=== PATIENT | male | born 1960 | race African-American/Black ===

== ENCOUNTER 2017-10-19 06:31 | Day surgery (SDC) | payer MEDICARE, OTHER ==
[2017-10-14 11:42] VITALS: BMI 24.0
[~2017-10-19 06:31] MED LIST: LACTATED RINGERS 1,000 ML IV SCH; LIDOCAINE 1% 20 ML VIAL (10MG/ML) FOR IV START INTRADERMA PRN
[2017-10-19] MEDS ORDERED: LACTATED RINGERS 1,000 ML IV ONE ×3 (06:58)
[2017-10-19 07:05] VITALS: RESP 18; TEMP 98.4
[2017-10-19] MEDS ORDERED: PROPOFOL 10 MG/ML 20 ML VIAL IV ONE (07:31)
[2017-10-19] MEDS ORDERED: LIDOCAINE 1% INJ 10MG/ML (20 ML MDV) ONE (07:31)
--- NOTE | 2017-10-19 07:58 | P.OP ---
Date of Procedure: 10/19/17 Preoperative Diagnosis: Colon cancer screening, personal history of crohn's disease Postoperative Diagnosis: same Procedure(s) Performed: Colonoscopy with biopsy Anesthesia: MAC Surgeon: Marcie Ochoa Pathology: other (Terminal ileum, random colon) Condition: stable Disposition: PACU Indications for Procedure: Patient presented for colon cancer screening. He's had a history of inflammatory bowel disease, Crohn's disease. He has several bowel movements per day. Operative Findings: The patient's taken the endoscopy suite where colonoscope is passed per rectum to the terminal ileum. He has a fairly good prep. There is liquid which was able to be irrigated and aspirated. The terminal ileum was intubated for about 6 inches and appeared unremarkable. The mucosa appears normal. The villous pattern appeared fairly normal. Several cold biopsies were obtained. The remainder of the colon was examined. Grossly there were no evidence of polyp, mass lesion, ulcer, other mucosal abnormality. No diverticular disease was seen. Some random colonic biopsies were obtained. No significant hemorrhoidal disease on retroflexion of the scope. He tolerated the procedure without difficulty and was taken recovery room in satisfactory condition. He should have a repeat colonoscopy in 10 years. We'll call with the report of the biopsies. Plan - Discharge Summary New Discharge Prescriptions: No Action Ergocalciferol (Vitamin D2) [Drisdol] 50,000 unit PO MARTIN Fenofibrate [Lofibra] 160 mg PO QAM Rosuvastatin [Crestor] 20 mg PO QAM HYDROcodone/APAP 5-325MG [[place] 5-325] 1 tab PO Q6HR PRN PRN Reason: Pain Discharge Medication List Ergocalciferol (Vitamin D2) [Drisdol] 50,000 unit PO MARTIN 02/12/16 [History] Fenofibrate [Lofibra] 160 mg PO QAM 10/14/17 [History] HYDROcodone/APAP 5-325MG [[place] 5-325] 1 tab PO Q6HR PRN 10/14/17 [History] Rosuvastatin [Crestor] 20 mg PO QAM 10/14/17 [History] Discharge Disposition: HOME SELF-CARE
[2017-10-19 08:28] VITALS: BP 122/80; PULSE 56
== END 2017-10-19 08:42 | disposition home or self-care (01) ==
LOC: ORWHC2ENDO 06:31
PROVIDERS: ATTEND Surgery
DX: K50.00 Crohn's disease of small intestine without complications (principal); Z79.891 Long term (current) use of opiate analgesic; Z79.899 Other long term (current) drug therapy; Z80.0 Family history of malignant neoplasm of digestive organs
CPT/HCPCS: 88305; 88313; 45380; J2001; J2704

== ENCOUNTER 2018-03-25 19:20 | Emergency (ER) | payer MEDICARE, OTHER ==
[2018-03-25 19:31] VITALS: BP 164/89; PULSE 56; RESP 18; TEMP 97.8
--- NOTE | 2018-03-25 19:59 | XR ---
EXAMINATION TYPE: XR finger RT DATE OF EXAM: 03/25/2018 COMPARISON: NONE HISTORY: Finger pain TECHNIQUE: 3 views FINDINGS: There is a hairline fracture of the tuft of the distal phalanx. Joint spaces are normal. IMPRESSION: Nondisplaced tuft fracture.
--- NOTE | 2018-03-25 20:13 | ED ---
Upper Extremity HPI - General Chief Complaint: Extremity Injury, Upper Stated Complaint: finger injury Time Seen by Provider: 03/25/18 19:35 Source: patient Mode of arrival: ambulatory Limitations: no limitations - History of Present Illness Initial Comments: This is a to 7-year-old male who presents to the emergency department with chief complaint of right index finger injury. Patient states a little over one week ago he was helping attach a trailer to the back of a truck. He states that he lifted up the joint of the trailer and it came down, crushing his right index finger between the ball on the truck and the end of the trailer. Patient states that he has had pain continuously to the tip of the finger. He denies any other injuries or trauma. He states that the tip of his finger does feel dull. Denies recent fevers or chills, chest pain or shortness breath, abdominal pain, nausea or vomiting. - Related Data Home Medications Medication Instructions Recorded Confirmed Ergocalciferol (Vitamin D2) 50,000 unit PO MARTIN 02/12/16 10/14/17 [Drisdol] Fenofibrate [Lofibra] 160 mg PO QAM 10/14/17 10/14/17 HYDROcodone/APAP 5-325MG [[place] 1 tab PO Q6HR PRN 10/14/17 10/14/17 5-325] Rosuvastatin [Crestor] 20 mg PO QAM 10/14/17 10/14/17 Allergies Allergy/AdvReac Type Severity Reaction Status Date / Time No Known Allergies Allergy Verified 03/25/18 19:31 Review of Systems ROS Statement: Those systems with pertinent positive or pertinent negative responses have been documented in the HPI. ROS Other: All systems not noted in ROS Statement are negative. 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" History of Any Multi-Drug Resistant Organisms: None Reported Past Surgical History: Hernia Repair, Orthopedic Surgery Additional Past Surgical History / Comment(s): right arm surgery; L arm surgery and then removal of pins; colonoscopy Past Anesthesia/Blood Transfusion Reactions: No Reported Reaction Past Psychological History: No Psychological Hx Reported Smoking Status: Never smoker - Past Family History Father Additional Family Medical History / Comment(s): pt did'nt know his father much- he was an alcoholic Mother Family Medical History: Cancer, Diabetes Mellitus, Hypertension Additional Family Medical History / Comment(s): breast cancer Sister(s) Additional Family Medical History / Comment(s): heart murmur Daughter(s) Additional Family Medical History / Comment(s): heart murmur and has hole in heart General Exam - General Exam Comments Initial Comments: General: Awake and alert, well-developed; in no apparent distress. HEENT: Head atraumatic, normocephalic. Pupils are equal, round and reactive to light. Extraocular movements intact. Oropharynx moist without erythema or exudate. Neck: Supple. Normal ROM. Cardiovascular: Regular rate and rhythm. No murmurs, rubs or gallops. Chest symmetrical. Respiratory: Lungs clear to auscultation bilaterally. No wheezes, rales or rhonchi. Normal respiratory effort with no use of accessory muscles. Musculoskeletal: Normal range of motion of the right index finger. There is tenderness to the distal tip. Sensation is intact. Radial pulses are 2+ equal and palpable bilaterally. Skin: [place], warm and dry without rashes or lesions. Neurological: Alert and oriented x3. CN II-XII grossly intact. Speech is fluent and answers are appropriate. No focal neuro deficits. Psychiatric: Normal mood and affect. No overt signs of depression or anxiety noted. Limitations: no limitations Course Vital Signs 03/25/18 19:29 Temperature 97.8 F Pulse Rate 56 L Respiratory 18 Rate Blood Pressure 164/89 O2 Sat by Pulse 97 Oximetry Medical Decision Making - Medical Decision Making This is a 57-year-old male who presents to the emergency department with chief complaint of right index finger injury. X-ray revealed a non-displaced tuft fracture. Finger splint was placed and recommended following up with orthopedics for further evaluation. Patient is in no acute distress and will be discharged home at this time. He is in agreement with plan and voices understanding. All questions were answered. - Radiology Data Radiology results: report reviewed X-ray right second finger impression: Nondisplaced tuft fracture. Disposition Clinical Impression: Closed fracture of tuft of distal phalanx of finger Disposition: HOME SELF-CARE Condition: Good Instructions: Finger Fracture (ED) Additional Instructions: Please follow-up with orthopedics for further evaluation. Please follow up with primary care provider within 1-2 days. Return to emergency department if symptoms should worsen or any concerns arise. Is patient prescribed a controlled substance at d/c from ED?: No Referrals: Stas Vazquez III, MD [Primary Care Provider] - 1-2 days Adan Alberto DO [Doctor of Osteopathic Medicine] - 1-2 days Time of Disposition: 20:29
== END 2018-03-25 20:36 | disposition home or self-care (01) ==
LOC: EC 19:20
DX: S62.660A Nondisplaced fracture of distal phalanx of right index finger, initial encounter for closed fracture (principal); Z79.899 Other long term (current) drug therapy; W24.0XXA Contact with lifting devices, not elsewhere classified, initial encounter; Y93.89 Activity, other specified
CPT/HCPCS: 99283

== ENCOUNTER 2019-09-12 13:36 | Emergency (ER) | payer MEDICARE, OTHER ==
[2019-09-12 13:56] VITALS: BP 105/67; TEMP 101.6
[2019-09-12] MEDS ORDERED: IBUPROFEN 600 MG TAB PO STA (14:55)
[2019-09-12] MEDS ORDERED: ACETAMINOPHEN TAB 500 MG TAB PO STA (14:55)
[2019-09-12] MEDS ORDERED: IPRATROPIUM-ALBUTEROL 3 ML NEB INHALATION STA (14:55)
--- NOTE | 2019-09-12 14:57 | ED ---
General Adult HPI - General Chief complaint: Fever Stated complaint: fever/poss uti Time Seen by Provider: 09/12/19 14:20 Source: patient, RN notes reviewed Mode of arrival: ambulatory Limitations: no limitations - History of Present Illness Initial comments: Patient is a pleasant 59-year-old male presenting to the emergency Department with cough and fever. Symptoms started a couple days ago. Patient does have cough that is nonproductive sputum. Patient feels a little bit short of breath. Patient has had frequent urination which is chronic. Patient does have myalgias and fatigue. Temperature at home was 104 - Related Data Home Medications Medication Instructions Recorded Confirmed Ergocalciferol (Vitamin D2) 50,000 unit PO MARTIN 02/12/16 10/14/17 [Drisdol] Fenofibrate [Lofibra] 160 mg PO QAM 10/14/17 10/14/17 HYDROcodone/APAP 5-325MG [[place] 1 tab PO Q6HR PRN 10/14/17 10/14/17 5-325] Rosuvastatin [Crestor] 20 mg PO QAM 10/14/17 10/14/17 Previous Rx's Medication Instructions Recorded Albuterol Inhaler [Ventolin Hfa 2 puff INHALATION Q4HR PRN #1 09/12/19 Inhaler] inhaler Allergies Allergy/AdvReac Type Severity Reaction Status Date / Time No Known Allergies Allergy Verified 09/12/19 13:56 Review of Systems ROS Statement: Those systems with pertinent positive or pertinent negative responses have been documented in the HPI. ROS Other: All systems not noted in ROS Statement are negative. Constitutional: Reports: fever, chills Eyes: Denies: eye pain ENT: Denies: ear pain Respiratory: Reports: cough, dyspnea Cardiovascular: Denies: chest pain Endocrine: Reports: fatigue Gastrointestinal: Denies: abdominal pain Genitourinary: Denies: dysuria Musculoskeletal: Denies: back pain Skin: Denies: rash Neurological: Denies: weakness Past Medical History Past Medical History: CVA/TIA, GERD/Reflux, Liver Disease, Musculoskeletal Di sorder, Osteoarthritis (OA) Additional Past Medical History / Comment(s): Tia yrs ago no lasting effects; chronic back pain & muscle spasms legs & arms; crohn's, Stage 2 liver disease from taking "high cholestrerol meds" History of Any Multi-Drug Resistant Organisms: None Reported Past Surgical History: Hernia Repair, Orthopedic Surgery Additional Past Surgical History / Comment(s): right arm surgery; L arm surgery and then removal of pins; colonoscopy Past Anesthesia/Blood Transfusion Reactions: No Reported Reaction Past Psychological History: No Psychological Hx Reported Smoking Status: Never smoker Past Alcohol Use History: None Reported Past Drug Use History: None Reported - Past Family History Father Additional Family Medical History / Comment(s): pt did'nt know his father much- he was an alcoholic Mother Family Medical History: Cancer, Diabetes Mellitus, Hypertension Additional Family Medical History / Comment(s): breast cancer Sister(s) Additional Family Medical History / Comment(s): heart murmur Daughter(s) Additional Family Medical History / Comment(s): heart murmur and has hole in heart General Exam Limitations: no limitations General appearance: alert, in no apparent distress Head exam: Present: normocephalic Eye exam: Present: normal appearance, PERRL ENT exam: Present: normal oropharynx Neck exam: Present: normal inspection Respiratory exam: Present: normal lung sounds bilaterally Cardiovascular Exam: Present: regular rate, normal rhythm GI/Abdominal exam: Present: soft. Absent: tenderness Extremities exam: Present: normal inspection. Absent: pedal edema, calf tenderness Back exam: Present: normal inspection Neurological exam: Present: alert Psychiatric exam: Present: normal affect, normal mood Skin exam: Present: normal color Course Vital Signs 09/12/19 09/12/19 09/12/19 13:52 14:30 15:27 Temperature 101.6 F H Pulse Rate 98 77 Respiratory 20 18 18 Rate Blood Pressure 105/67 O2 Sat by Pulse 96 Oximetry 09/12/19 15:40 Temperature Pulse Rate 78 Respiratory 16 Rate Blood Pressure O2 Sat by Pulse Oximetry - Reevaluation(s) Reevaluation #1: 09/12/19 16:01 Patient unable to provide urinalysis. Patient reevaluated and states he is feeling much better. No dyspnea. Patient does not want to stay for urinalysis. Patient updated on results and need for follow-up. Onset of symptoms was 3 days ago and therefore patient is not appropriate for Tamiflu prescription. Medical Decision Making - Lab Data Lab Results 09/12/19 Range/Units 13:35 Influenza Type A RNA Detected H (Not Detectd) Influenza Type B (PCR) Not Detected (Not Detectd) - Radiology Data Radiology results: image reviewed (Chest x-ray shows some atelectasis. No acute process. Mild hyperinflation.) Disposition Clinical Impression: Influenza Disposition: HOME SELF-CARE Condition: Stable Instructions (If sedation given, give patient instructions): Fever in Adults (ED), Influenza (ED) Additional Instructions: Please follow-up with primary care physician in the next day or 2. Have primary care physician reevaluate for urinary symptoms. Return for uncontrolled fevers, difficulty breathing, worsening symptoms or other concerns. [id number] Tylenol or Motrin as needed. Prescription sent to a [facility] Prescriptions: Albuterol Inhaler [Ventolin Hfa Inhaler] 2 puff INHALATION Q4HR PRN #1 inhaler PRN Reason: Dyspnea Is patient prescribed a controlled substance at d/c from ED?: No Referrals: Stas Vazquez III, MD [Primary Care Provider] - 1-2 days Time of Disposition: 16:03
--- NOTE | 2019-09-12 15:19 | XR ---
EXAMINATION TYPE: XR chest 2V DATE OF EXAM: 09/12/2019 COMPARISON: 02/12/2016 HISTORY: 59-year-old male cough and dyspnea, shortness of breath TECHNIQUE: PA and lateral views FINDINGS: The cardiomediastinal silhouette, aorta, and pulmonary vasculature are within normal limits. Mild hyp erinflation. Some strandy atelectasis in the lower lungs. Otherwise, lungs and pleural spaces are naima ar. IMPRESSION: Mild hyperinflation may relate to depth of inspiration or underlying emphysema. Clinically correlate. Some strandy bibasilar atelectasis. Otherwise, no acute cardiopulmonary process.
[2019-09-12 15:40] VITALS: PULSE 78; RESP 16
[2019-09-12 16:33] LABS: Appearance,Urine Clear (Clear); Bilirubin,Urine Negative (Negative); Blood,Urine Negative (Negative); Color,Urine Orange; Glucose,Urine (UA) Negative (Negative); Hyaline Casts,Urine 34 /lpf (0-2); Ketones,Urine Negative (Negative); Leukocyte Esterase,Urine Negative (Negative); Mucus,Urine Many /hpf; Nitrite,Urine Negative (Negative); PH, Urine 5.5 (5.0-8.0); Protein,Urine 1+ (Negative); RBC,Urine 1 /hpf (0-5); Specific Gravity,Urine 1.033 (1.001-1.035); Squamous Epithelial Cell,Urine <1 /hpf (0-4); Urobilinogen,Urine <2.0 mg/dL (<2.0); WBC,Urine 1 /hpf (0-5)
== END 2019-09-12 16:17 | disposition home or self-care (01) ==
LOC: EC 13:36
DX: J11.1 Influenza due to unidentified influenza virus with other respiratory manifestations (principal); R53.83 Other fatigue; R35.0 Frequency of micturition; K76.9 Liver disease, unspecified; Z79.899 Other long term (current) drug therapy; Z86.73 Personal history of transient ischemic attack (TIA), and cerebral infarction without residual deficits
CPT/HCPCS: 71046; 81001; 87502; 94640; 99284

== ENCOUNTER → 2019-12-20 | Outpatient (CLI) | payer MEDICARE, OTHER ==
--- NOTE | 2019-12-21 09:50 | MR ---
EXAMINATION TYPE: MR cspine/lspine wo con DATE OF EXAM: 12/20/2019 COMPARISON: MRI lumbar spine August 25, 2012. HISTORY: Intervertebral disc disorder with Lumbar radiculopathy, cervical disc disorder with radiculo michaela per orders. Back and neck pain for years per patient. TECHNIQUE: Multiplanar, multisequence imaging of the cervical and lumbar spine are CT cervical spine January 08, 2014. Performed without IV contrast. FINDINGS: C-SPINE: FINDINGS: Sagittal images of the cervical spine show the craniocervical junction to remain within nor mal limits. The cervical and upper thoracic spinal cord is normal in caliber and signal. Persistent multilevel spondylolisthesis with grade 1 retrolisthesis C2 on C3, C3 on C4, C4 on C5, and greatest a t C5 on C6 are all redemonstrated. The vertebral body heights remain normal. Persistent mild to mode rate disc space narrowing and spurring C4-C5 through C6-C7 levels. Heterogeneous Modic type II endpla te changes involving the inferior C4 endplate and heterogeneous Modic type I endplate changes centere d C6-C7 disc space. Axial images show the C2-C3 level to appear within normal limits. Axial images at C3-C4 level show the vertebral facet degenerative changes causing moderate to severe left and mild to moderate right-sided neural foraminal narrowing. Axial images at C4-C5 level show left paracentral disc protrusion effacing the anterior thecal sac na rrowing of the ventral surface of spinal cord with uncovertebral facet degenerative changes causing m [id number] bilateral neural foraminal narrowing. Axial images at C5-C6 level show spondylolisthesis with broad based right paracentral disc protrusion effacing the anterolateral thecal sac of the ventral surface of spinal cord which is slightly flatte betsy. There is moderate left and moderate to severe right-sided neural foraminal narrowing due to [place] tional marginal spurring. Axial images at C6-C7 level shows broad-based central spur disc complex effacing the anterior thecal sac with mild to moderate left greater than right bilateral neural foraminal narrowing. Axial images at C7-T1 level are within normal limits. IMPRESSION: Multilevel spondylolisthesis and degenerative changes as detailed above with progression from 2014 CT noted. L-SPINE: Sagittal images of the lumbar spine show vertebral body heights and alignment to remain satisfactory. Increasing multilevel disc desiccation is present. Persistent moderate disc space narrowing L2-L3 an d L3-L4 levels. Mild multilevel anterior spurring is redemonstrated. The conus medullaris remains no rmal in position and signal ending mid L1 level. Heterogeneous moderate type I endplate changes invol ving inferior L3 end plate now present. Axial images at T12-L1 level shows new left paracentral disc protrusion effacing the anterolateral th ecal sac on axial image 34. Axial images at L1-L2 level shows slightly more prominent new left paracentral disc protrusion with a nnular tear effacing the anterolateral thecal sac on axial image 29 and sagittal image 6. Axial images at L2-L3 level show now moderate severe broad-based disc bulge with paracentral disc pro trusion component effacing the anterolateral thecal sac and causing moderate left and mild to moderat e right-sided anterior inferior foraminal narrowing. Progression from prior MRI noted. Mild facet deg enerative changes bilaterally are present. Axial images at the L3-L4 level show moderate to severe broad-based disc bulge increased in prominenc e from prior MRI with more prominent left greater than right foraminal protrusion components. There i s effacement of the anterior thecal sac. There is severe left and mild right-sided neural foraminal n arrowing. Encroachment on the exiting left L3 nerve flow present sagittal image and axial image 16. M ild to moderate facet degenerative changes bilaterally are present. Axial images at the L4-L5 level mild facet degenerative changes bilaterally. Axial images at L5-S1 level shows moderate facet degenerative changes with tiny central disc protrusi on with spinal canal is preserved and bilateral neural foramina are patent. There is 7 mm T2 hyperintense round lesion right kidney axial image 34 is presumed simple thin-walled cyst. IMPRESSION: Multilevel degenerative changes in the lumbar spine with progression from the 2013 study. Most prominent findings are L2-L3 and L3-L4 levels as detailed above. Encroachment on exiting left L 3 nerve canal present.
== END | disposition home or self-care (01) ==
LOC: RADMRIMAIN 15:26
PROVIDERS: ATTEND Nurse Practitioner Family
DX: M48.061 Spinal stenosis, lumbar region without neurogenic claudication (principal); M51.16 Intervertebral disc disorders with radiculopathy, lumbar region; M47.26 Other spondylosis with radiculopathy, lumbar region
CPT/HCPCS: 72141; 72148

== ENCOUNTER → 2020-04-23 | Outpatient (CLI) | payer MEDICARE, OTHER ==
--- NOTE | 2020-04-23 16:52 | XR ---
EXAMINATION TYPE: XR foot complete LT DATE OF EXAM: 04/23/2020 CLINICAL HISTORY: Pain in left toes. Prior injury. Pain in great toe. TECHNIQUE: Frontal, lateral, and oblique images of the left foot are obtained. COMPARISON: Left foot radiograph 03/20/2020 FINDINGS: There is no acute fracture/dislocation evident in the left foot. There is joint space narr owing, subchondral cysts, and degenerative spurring of the first digit metatarsophalangeal joint. [place] ntar spur. Normal osseous mineralization. The overlying soft tissue appears unremarkable. IMPRESSION: 1. No acute fracture or dislocation in the left foot. 2. Osteoarthritic change at the first digit MTP joint.
== END | disposition home or self-care (01) ==
LOC: RADXRMAIN 13:40
PROVIDERS: ATTEND Family Medicine
DX: M19.072 Primary osteoarthritis, left ankle and foot (principal)

== ENCOUNTER → 2020-05-11 | Outpatient (CLI) | payer MEDICARE, OTHER ==
--- NOTE | 2020-05-11 15:49 | US ---
EXAMINATION TYPE: US pelvic limited DATE OF EXAM: 05/11/2020 COMPARISON: NONE CLINICAL HISTORY: R35.0 Frequency of micturition; R10.30 lower abd. nocturia, urinary frequency, lowe r abdominal pain Bladder Post void residual: 3.0ml Bladder: appears wnl Bilateral jets seen: no heterogeneous prostate gland Urinary bladder is sonolucent. Posterior wall is normal. There is normal post void residual. IMPRESSION: 1. Normal renal ultrasound
== END | disposition home or self-care (01) ==
LOC: RADUSWWP 12:09
PROVIDERS: ATTEND Family Medicine
DX: R35.0 Frequency of micturition (principal); R10.30 Lower abdominal pain, unspecified
CPT/HCPCS: 76857

== ENCOUNTER 2021-04-06 18:48 | Emergency (ER) | payer MEDICARE, OTHER ==
[2021-04-06 19:35] VITALS: RESP 18; TEMP 98.7
[2021-04-06] MEDS ORDERED: HYDROmorphone 0.5 MG/0.5 ML SYRINGE IVP STA (19:46)
[2021-04-06] MEDS ORDERED: SODIUM CHLORIDE 0.9% 1,000 ML IV STA (19:46)
[2021-04-06] MEDS ORDERED: ONDANSETRON 4 MG/2 ML VIAL IVP STA (19:46)
[2021-04-06] MEDS ORDERED: KETOROLAC 15 MG/ML 1 ML VIAL IVP STA (19:46)
[2021-04-06 20:58] LABS: Basophils % (A) 0 %; Eosinophils # (A) 0.1 k/uL (0-0.7); Eosinophils % (A) 2 %; HCT 41.8 % (39.0-53.0); HGB 13.3 gm/dL (13.0-17.5); Lymphocytes # (A) 1.5 k/uL (1.0-4.8); Lymphocytes % (A) 31 %; MCHC 31.9 g/dL (31.0-37.0); MCV 100.4 fL (80.0-100.0); Monocytes # (A) 0.3 k/uL (0-1.0); Monocytes % (A) 6 %; Neutrophils # (A) 2.9 k/uL (1.3-7.7); Neutrophils % (A) 58 %; Platelet Count 147 k/uL (150-450); RBC 4.16 m/uL (4.30-5.90)
[2021-04-06 21:18] LABS: Albumin 4.1 g/dL (3.5-5.0); Calcium 9.7 mg/dL (8.4-10.2); Potassium 4.9 mmol/L (3.5-5.1); Total Bilirubin 0.5 mg/dL (0.2-1.3); Total Protein 7.1 g/dL (6.3-8.2)
--- NOTE | 2021-04-06 21:29 | CT ---
EXAMINATION TYPE: CT abdomen pelvis wo con DATE OF EXAM: 04/06/2021 COMPARISON: 04/25/2016 HISTORY: RT flank pain, abdominal pain CT DLP: 459.1 mGycm Automated exposure control for dose reduction was used. Images obtained from the diaphragm to the floor the pelvis with no contrast. There is minimal subsegmental atelectasis at the right lung base. There is no pleural effusion. There is no pericardial effusion. Heart size is normal. Liver spleen stomach pancreas gallbladder appear normal. Bile ducts are not dilated. There is no adrenal mass. Kidneys have normal size. There is no hydronephrosis. Ureters are not dilat ed. There is no retroperitoneal adenopathy. Appendix appears normal. Bladder distends smoothly. There is no inguinal hernia. There is no free fluid in the pelvis. There is no sign of a pelvic mass. There is no mesenteric edema. There is no ascites or free air. There is no bowel obstruction. There a re a few sigmoid diverticula. There is no diverticulitis. Lumbar vertebra have normal alignment. Posterior elements are intact. There is no compression fractur e. There is mild disc space narrowing at L2-3 and L3-4. Bony pelvis is intact. The hip joints are int act. IMPRESSION: Normal appendix. Negative CT scan of the abdomen pelvis. Minimal subsegmental atelectasis right lung base. Mild sigmoid diverticulosis without diverticulitis. I do not see evidence for inflammatory bowel disease. No adverse change compared to old exam.
[2021-04-06 22:23] LABS: Appearance,Urine Clear (Clear); Bilirubin,Urine Negative (Negative); Blood,Urine Negative (Negative); Color,Urine Yellow; Glucose,Urine (UA) Negative (Negative); Ketones,Urine Negative (Negative); Leukocyte Esterase,Urine Negative (Negative); Nitrite,Urine Negative (Negative); PH, Urine 5.5 (5.0-8.0); Protein,Urine Negative (Negative); Specific Gravity,Urine 1.024 (1.001-1.035); Urobilinogen,Urine <2.0 mg/dL (<2.0)
--- NOTE | 2021-04-06 22:28 | ED ---
Back Pain HPI - General Chief Complaint: Back Pain/Injury Stated Complaint: back pain Time Seen by Provider: 04/06/21 19:40 Source: patient - History of Present Illness Initial Comments: 60 year-old male patient presents to the emergency department for evaluation of right mid back pain. States it started two days ago and has not gotten any better. States he was laying in bed when it started. The pain waxes and wanes. It is when it is at its worse it makes it difficult to breathe. He reports lower abdominal pain with this. Reports urinary frequency. Denies any hematuria, dysuria, urinary urgency. Denies nausea or vomiting. Denies any radiating pain down the legs. Denies saddle anesthesia or loss of bowel or bladder control. Denies any fever or chills. Denies any known back injury. Does have history of degenerative disc disease is out of his pain medication. Patient denies any recent rash, cough, chest pain, diarrhea, constipation, dizziness, weakness, headache, visual changes, or any other complaints. - Related Data Home Medications Medication Instructions Recorded Confirmed Rosuvastatin [Crestor] 20 mg PO DAILY 10/14/17 04/06/21 Allopurinol [Zyloprim] 100 mg PO DAILY 04/06/21 04/06/21 HYDROcodone/APAP 7.5-325MG [[place] 1 tab PO Q6H PRN 04/06/21 04/06/21 7.5-325] Previous Rx's Medication Instructions Recorded Cyclobenzaprine [Flexeril] 10 mg PO TID #15 tab 04/06/21 Ibuprofen [Motrin] 600 mg PO Q8HR PRN #30 tab 04/06/21 Allergies Allergy/AdvReac Type Severity Reaction Status Date / Time No Known Allergies Allergy Verified 04/06/21 21:26 Review of Systems ROS Statement: Those systems with pertinent positive or pertinent negative responses have been documented in the HPI. ROS Other: All systems not noted in ROS Statement are negative. 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" History of Any Multi-Drug Resistant Organisms: None Reported Past Surgical History: Hernia Repair, Orthopedic Surgery Additional Past Surgical History / Comment(s): right arm surgery; L arm surgery and then removal of pins; colonoscopy Past Anesthesia/Blood Transfusion Reactions: No Reported Reaction Past Psychological History: No Psychological Hx Reported Smoking Status: Former smoker Past Alcohol Use History: None Reported Past Drug Use History: None Reported - Past Family History Father Additional Family Medical History / Comment(s): pt did'nt know his father much- he was an alcoholic Mother Family Medical History: Cancer, Diabetes Mellitus, Hypertension Additional Family Medical History / Comment(s): breast cancer Sister(s) Additional Family Medical History / Comment(s): heart murmur Daughter(s) Additional Family Medical History / Comment(s): heart murmur and has hole in heart General Exam General appearance: alert, in no apparent distress, other (This is a well- developed, well-nourished adult male patient in no acute distress. Vital signs upon presentation are temperature 98.7F, pulse 77, respirations 18, blood pressure 154/87, pulse ox 97% on room air.) Eye exam: Present: normal appearance, PERRL, EOMI. Absent: scleral icterus, conjunctival injection, periorbital swelling ENT exam: Present: normal exam, normal oropharynx, mucous membranes moist Neck exam: Present: normal inspection. Absent: tenderness, meningismus, lymphadenopathy Respiratory exam: Present: normal lung sounds bilaterally. Absent: respiratory distress, wheezes, rales, rhonchi, stridor Cardiovascular Exam: Present: regular rate, normal rhythm, normal heart sounds. Absent: systolic murmur, diastolic murmur, rubs, gallop, clicks GI/Abdominal exam: Present: soft, tenderness (Suprapubic), normal bowel sounds. Absent: distended, guarding, rebound, rigid Back exam: Present: normal inspection. Absent: CVA tenderness (R), CVA tenderness (L) Neurological exam: Present: alert, oriented X3, CN II-XII intact, other (Strength to the lower extremities is 5/5.) Psychiatric exam: Present: normal affect, normal mood Skin exam: Present: warm, dry, intact, normal color. Absent: rash Course Vital Signs 04/06/21 19:32 Temperature 98.7 F Pulse Rate 77 Respiratory 18 Rate Blood Pressure 154/87 O2 Sat by Pulse 97 Oximetry Medical Decision Making - Medical Decision Making 60-year-old male patient presents the emergency department for evaluation of right flank pain and suprapubic pain. Also reported urinary frequency. Physical examination did reveal some mild suprapubic tenderness. No CVA tenderness. He is afebrile normal vital signs. Labs reviewed and were unremarkable. Urinalysis shows no evidence for infection or presence of blood. CT abdomen and pelvis without contrast was obtained and was negative. I did discuss findings and results with him. We did discuss musculoskeletal back pain as a cause for his symptoms are to be discharged home with starter packs or Tylenol for codeine and Flexeril. He is instructed to follow-up with his primary care physician for recheck in 1-2 days. Return parameters discussed in detail. He verbalizes understanding and agrees with this plan. My attending is Dr. Valderrama. - Lab Data Result diagrams: 04/06/21 20:31 04/06/21 20:31 Lab Results 04/06/21 04/06/21 04/06/21 Range/Units 20:31 20:31 20:31 WBC 5.0 (3.8-10.6) k/uL RBC 4.16 L (4.30-5.90) m/uL Hgb 13.3 (13.0-17.5) gm/dL Hct 41.8 (39.0-53.0) % MCV 100.4 H (80.0-100.0) fL MCH 32.0 (25.0-35.0) pg MCHC 31.9 (31.0-37.0) g/dL RDW 12.0 (11.5-15.5) % Plt Count 147 L (150-450) k/uL MPV 10.0 Neutrophils % 58 % Lymphocytes % 31 % Monocytes % 6 % Eosinophils % 2 % Basophils % 0 % Neutrophils # 2.9 (1.3-7.7) k/uL Lymphocytes # 1.5 (1.0-4.8) k/uL Monocytes # 0.3 (0-1.0) k/uL Eosinophils # 0.1 (0-0.7) k/uL Basophils # 0.0 (0-0.2) k/uL Sodium 140 (137-145) mmol/L Potassium 4.9 (3.5-5.1) mmol/L Chloride 108 H (98-107) mmol/L Carbon Dioxide 26 (22-30) mmol/L Anion Gap 6 mmol/L BUN 25 H (9-20) mg/dL Creatinine 1.31 H (0.66-1.25) mg/dL Est GFR (CKD-EPI)AfAm 69 (>60 ml/min/1.73 sqM) Est GFR (CKD-EPI)NonAf 59 (>60 ml/min/1.73 sqM) Glucose 93 (74-99) mg/dL Plasma Lactic Acid Octavio (0.7-2.0) mmol/L Calcium 9.7 (8.4-10.2) mg/dL Total Bilirubin 0.5 (0.2-1.3) mg/dL AST 40 (17-59) U/L ALT 32 (4-49) U/L Alkaline Phosphatase 85 (38-126) U/L Total Protein 7.1 (6.3-8.2) g/dL Albumin 4.1 (3.5-5.0) g/dL Amylase 123 H (30-110) U/L Lipase 160 (23-300) U/L Urine Color Yellow Urine Appearance Clear (Clear) Urine pH 5.5 (5.0-8.0) Ur Specific [place] 1.024 (1.001-1.035) Urine Protein Negative (Negative) Urine Glucose (UA) Negative (Negative) Urine Ketones Negative (Negative) Urine Blood Negative (Negative) Urine Nitrite Negative (Negative) Urine Bilirubin Negative (Negative) Urine Urobilinogen <2.0 (<2.0) mg/dL Ur Leukocyte Esterase Negative (Negative) 04/06/21 Range/Units 20:31 WBC (3.8-10.6) k/uL RBC (4.30-5.90) m/uL Hgb (13.0-17.5) gm/dL Hct (39.0-53.0) % MCV (80.0-100.0) fL MCH (25.0-35.0) pg MCHC (31.0-37.0) g/dL RDW (11.5-15.5) % Plt Count (150-450) k/uL MPV Neutrophils % % Lymphocytes % % Monocytes % % Eosinophils % % Basophils % % Neutrophils # (1.3-7.7) k/uL Lymphocytes # (1.0-4.8) k/uL Monocytes # (0-1.0) k/uL Eosinophils # (0-0.7) k/uL Basophils # (0-0.2) k/uL Sodium (137-145) mmol/L Potassium (3.5-5.1) mmol/L Chloride (98-107) mmol/L Carbon Dioxide (22-30) mmol/L Anion Gap mmol/L BUN (9-20) mg/dL Creatinine (0.66-1.25) mg/dL Est GFR (CKD-EPI)AfAm (>60 ml/min/1.73 sqM) Est GFR (CKD-EPI)NonAf (>60 ml/min/1.73 sqM) Glucose (74-99) mg/dL Plasma Lactic Acid [place] 0.8 (0.7-2.0) mmol/L Calcium (8.4-10.2) mg/dL Total Bilirubin (0.2-1.3) mg/dL AST (17-59) U/L ALT (4-49) U/L Alkaline Phosphatase (38-126) U/L Total Protein (6.3-8.2) g/dL Albumin (3.5-5.0) g/dL Amylase (30-110) U/L Lipase (23-300) U/L Urine Color Urine Appearance (Clear) Urine pH (5.0-8.0) Ur Specific [place] (1.001-1.035) Urine Protein (Negative) Urine Glucose (UA) (Negative) Urine Ketones (Negative) Urine Blood (Negative) Urine Nitrite (Negative) Urine Bilirubin (Negative) Urine Urobilinogen (<2.0) mg/dL Ur Leukocyte Esterase (Negative) - Radiology Data Radiology results: report reviewed, image reviewed CT abdomen and pelvis without contrast was obtained. Report was reviewed in its entirety. Impression by Dr. To shows normal appendix. Negative computed tomography scan of the abdomen and pelvis. Minimal subsegmental atelectasis right lung base. Sigmoid diverticulosis without diverticulitis. I do not see evidence for inflammatory bowel disease. Disposition Clinical Impression: Back pain, Urinary frequency Disposition: HOME SELF-CARE Condition: Good Instructions (If sedation given, give patient instructions): Back Pain (ED) Additional Instructions: Follow-up with the primary care physician for recheck in 1-2 days. Take medications as directed for pain control. Return to the emergency department for any new, worsening, or concerning symptoms. Prescriptions: Cyclobenzaprine [Flexeril] 10 mg PO TID #15 tab Ibuprofen [Motrin] 600 mg PO Q8HR PRN #30 tab PRN Reason: Pain Is patient prescribed a controlled substance at d/c from ED?: No Referrals: Stas Vazquez III, MD [Primary Care Provider] - 1-2 days Time of Disposition: 22:28
[2021-04-06] MEDS ORDERED: CYCLOBENZAPRINE 10MG STARTER 3 TAB BTL PO STA (22:37)
[2021-04-06] MEDS ORDERED: ACET/COD 300 MG/30 MG STARTER PACK 6 TAB BTL PO STA (22:37)
[2021-04-06 23:20] VITALS: BP 136/80; PULSE 54
== END 2021-04-06 23:25 | disposition home or self-care (01) ==
LOC: EC 18:48
DX: K57.30 Diverticulosis of large intestine without perforation or abscess without bleeding (principal); Z86.73 Personal history of transient ischemic attack (TIA), and cerebral infarction without residual deficits; Z87.891 Personal history of nicotine dependence
CPT/HCPCS: 36415; 80053; 82150; 83605; 83690; 85025; 81003; 74176; 99284; 96374; 96375; 96361; J2405; J1885; J1170

== ENCOUNTER 2021-12-09 17:20 | Emergency (ER) | payer MEDICARE, OTHER ==
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
[2021-12-09 20:18] VITALS: BP 144/84; PULSE 78; RESP 20; TEMP 98
== END 2021-12-09 20:18 | disposition home or self-care (01) ==
LOC: EC 17:20
DX: S39.012A Strain of muscle, fascia and tendon of lower back, initial encounter (principal); S56.911A Strain of unspecified muscles, fascia and tendons at forearm level, right arm, initial encounter; Z86.73 Personal history of transient ischemic attack (TIA), and cerebral infarction without residual deficits; Z87.891 Personal history of nicotine dependence; V89.2XXA Person injured in unspecified motor-vehicle accident, traffic, initial encounter
CPT/HCPCS: 99283

== ENCOUNTER → 2022-01-10 | Outpatient (CLI) | payer MEDICARE, OTHER ==
--- NOTE | 2022-01-10 15:53 | US ---
EXAMINATION TYPE: US scrotum with doppler. Grayscale and color Doppler Duplex imaging performed of t he scrotum. 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 lt side edema EXAM MEASUREMENTS: TESTICLES: Right Testicle: 3.3 x 1.8 x 3.0 cm Left Testicle: 3.4 x 1.7 x 2.4 cm EPIDIDYMIS HEAD: Right Epididymis: 1.3 x .9 x 1.1 cm Left Epididymis: .6 x .5 cm Doppler performed to assess for testicular vascularity; good bilateral color flow and waveforms are s een. Presence of hydroceles: Yes bilaterally largest on the left side. Presence of varicoceles: no IMPRESSION: Bilateral scrotal fluid collection or hydroceles greater in size on the left.
== END | disposition home or self-care (01) ==
LOC: RADUSWWP 15:14
PROVIDERS: ATTEND Family Medicine
DX: N50.89 Other specified disorders of the male genital organs (principal)
CPT/HCPCS: 76870; 93975

== ENCOUNTER 2022-01-29 21:20 | Emergency (ER) | payer MEDICARE, OTHER ==
[2022-01-29 21:40] VITALS: PULSE 58; RESP 22; TEMP 98.3
--- NOTE | 2022-01-29 23:05 | ED ---
Male Urogenital HPI - General Chief complaint: Urogenital Stated complaint: Swelling Time Seen by Provider: 01/29/22 22:31 Source: patient, RN notes reviewed Mode of arrival: ambulatory Limitations: no limitations - History of Present Illness Initial comments: Patient presents simmers well with increasing edema to his left scrotal area which has been present for the past few weeks. Patient actually had an outpatient ultrasound done here on the seventh which showed bilateral hydroceles with left greater than right. Patient has been on antibiotics as prescribed by his regular physician since. However he states that his edema seems to be getting worse. He denies any significant pain. No positive urination. No problems with bowel movements. There is no evidence of hernia. 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 Denies any skin rashes or lesions. Sounds as if the patient is taking ciprofloxacin at home. Patient has only been seen by his primary care physician. Has not seen urology. No headache, no fever or chills, no changes in vision or hearing, no sore throat or difficulty with speech, no neck pain, no chest pain or shortness of breath, no abdominal pain, no nausea or vomiting, no changes in urination or bowel movements, no numbness or tingling, no extremity pain, no skin rashes or lesions. Past medical, surgical, social, and family history reviewed. - Related Data Home Medications Medication Instructions Recorded Confirmed HYDROcodone/APAP 7.5-325MG [[place] 1 tab PO BID PRN 04/06/21 01/29/22 7.5-325] Aspirin EC [Ecotrin Low Dose] 81 mg PO DAILY 01/29/22 01/29/22 Ezetimibe [Zetia] 10 mg PO DAILY 01/29/22 01/29/22 Gabapentin [Neurontin] 100 mg PO TID 01/29/22 01/29/22 Meloxicam [Mobic] 15 mg PO DAILY 01/29/22 01/29/22 Previous Rx's Medication Instructions Recorded Baclofen [Lioresal] 20 mg PO TID PRN #20 tab 12/09/21 Allergies Allergy/AdvReac Type Severity Reaction Status Date / Time No Known Allergies Allergy Verified 01/29/22 23:30 Review of Systems ROS Statement: Those systems with pertinent positive or pertinent negative responses have been documented in the HPI. ROS Other: All systems not noted in ROS Statement are negative. 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" History of Any Multi-Drug Resistant Organisms: None Reported Past Surgical History: Hernia Repair, Orthopedic Surgery Additional Past Surgical History / Comment(s): right arm surgery; L arm surgery and then removal of pins; colonoscopy, vascular surgery bilateral legs Past Anesthesia/Blood Transfusion Reactions: No Reported Reaction Past Psychological History: No Psychological Hx Reported Smoking Status: Former smoker Past Alcohol Use History: None Reported Past Drug Use History: None Reported - Past Family History Father Additional Family Medical History / Comment(s): pt did'nt know his father much- he was an alcoholic Mother Family Medical History: Cancer, Diabetes Mellitus, Hypertension Additional Family Medical History / Comment(s): breast cancer Sister(s) Additional Family Medical History / Comment(s): heart murmur Daughter(s) Additional Family Medical History / Comment(s): heart murmur and has hole in heart General Exam - General Exam Comments Initial Comments: Vital signs stable, patient afebrile. Patient in no distress Limitations: no limitations General appearance: alert, in no apparent distress Head exam: Present: atraumatic, normocephalic, normal inspection Eye exam: Present: normal appearance, PERRL, EOMI. Absent: scleral icterus, conjunctival injection, periorbital swelling ENT exam: Present: normal exam, mucous membranes moist Neck exam: Present: normal inspection, full ROM. Absent: tenderness, meningismus, lymphadenopathy Respiratory exam: Present: normal lung sounds bilaterally. Absent: respiratory distress, wheezes, rales, rhonchi, stridor Cardiovascular Exam: Present: regular rate, normal rhythm, normal heart sounds. Absent: systolic murmur, diastolic murmur, rubs, gallop, clicks GI/Abdominal exam: Present: soft, normal bowel sounds. Absent: distended, tenderness, guarding, rebound, rigid, organomegaly, mass, bruit, pulsatile mass, hernia exam: Present: scrotal swelling (Left), circumcision, other (Patient has edema to the left scrotal area. No overlying erythema. No rashes or lesions. No specific tenderness. Cremasteric reflexes intact. No evidence of testicular torsion). Absent: normal inspection, testicular tenderness, urethral discharge Extremities exam: Present: normal inspection, full ROM, normal capillary refill. Absent: tenderness, pedal edema, joint swelling, calf tenderness Back exam: Present: normal inspection Neurological exam: Present: alert, oriented X3, CN II-XII intact Psychiatric exam: Present: normal affect, normal mood Skin exam: Present: warm, dry, intact, normal color. Absent: rash Course Vital Signs 01/29/22 21:35 Temperature 98.3 F Pulse Rate 58 L Respiratory 22 Rate Blood Pressure 165/100 O2 Sat by Pulse 98 Oximetry - Reevaluation(s) Reevaluation #1: 01/29/22 23:58 Medical record is reviewed Symptoms unchanged Patient is informed of results and questions answered Patient in no distress Medical Decision Making - Medical Decision Making Patient previously had hydroceles diagnosed by scrotal ultrasound. I'm going to repeat the ultrasound given that the edema is worsening. Patient does not appear to be ill or toxic otherwise. Suspect this is not infectious process. Suspect this is a worsening hydrocele. Patient will need to see urology. I did add on urinalysis and gonorrhea/chlamydia testing. Ultrasound does show hydroceles with no significant change from previous study. I do not believe this is an infectious process. We'll have the patient follow up with urology to have this assessed as this is worsening as far as the patient's history. Also persistent. Patient may need intervention for this large hydrocele on the left. Return fall prior discussed in detail. Patient voiced understanding. Discussed return if fever develops, redness or any other problems arise. Patient was told to return to the ER for any signs or symptoms worsen. Told to return immediately if any other problems arise. All questions answered. Treatment plan discussed. Patient in agreement Every effort has been made to ensure accuracy of this dictation. However, due to the limitations of electronic medical records and dictation devices, errors in charting still occur. 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 This will need to be monitored and rechecked. Call in the morning at 8 AM to schedule a follow-up appointment with urologist. Follow-up with your regular physician as directed. Return to the ER immediately if any symptoms worsen, new symptoms arise, or any other problems develop. He may benefit from wearing a jockstrap. Limit heavy lifting. Is patient prescribed a controlled substance at d/c from ED?: No Referrals: Jeremy Reza MD [STAFF PHYSICIAN] - As Soon As Possible Time of Disposition: 00:00
--- NOTE | 2022-01-29 23:23 | US ---
EXAMINATION TYPE: US scrotum with doppler. Grayscale and color Doppler Duplex imaging performed of kasey fitzgerald scrotum. DATE OF EXAM: 01/29/2022 COMPARISON: US 3 weeks ago CLINICAL HISTORY: Scrotal edema. EXAM MEASUREMENTS: TESTICLES: Right Testicle: 3.6 x 2.1 x 2.1 cm Left Testicle: 3.5 x 1.7 x 2.2 cm EPIDIDYMIS HEAD: Right Epididymis: 1.3 cm Left Epididymis: 1.2 cm Doppler performed to assess for testicular vascularity; good bilateral color flow and waveforms are s een within the right testicle and good arterial flow seen within left testicle, unable to obtain veno us flow within the left testicle. Presence of hydroceles: right - 2.8cm, left 8.8cm Presence of varicoceles: prominent vessels posterior to left testicle IMPRESSION: Persistent small to moderate size right and moderate to large size left scrotal fluid col lection or hydroceles. No significant change from recent ultrasound.
[2022-01-30 00:02] LABS: Appearance,Urine Clear (Clear); Bilirubin,Urine Negative (Negative); Blood,Urine Negative (Negative); Color,Urine Yellow; Glucose,Urine (UA) Negative (Negative); Ketones,Urine Trace (Negative); Leukocyte Esterase,Urine Negative (Negative); Nitrite,Urine Negative (Negative); PH, Urine 5.5 (5.0-8.0); Protein,Urine Trace (Negative); Specific Gravity,Urine 1.033 (1.001-1.035)
[2022-01-30 01:21] VITALS: BP 131/71
== END 2022-01-30 01:21 | disposition home or self-care (01) ==
LOC: EC 21:20
DX: N43.3 Hydrocele, unspecified (principal); R03.0 Elevated blood-pressure reading, without diagnosis of hypertension; M19.90 Unspecified osteoarthritis, unspecified site; Z86.73 Personal history of transient ischemic attack (TIA), and cerebral infarction without residual deficits; Z87.891 Personal history of nicotine dependence; Z79.82 Long term (current) use of aspirin; Z79.899 Other long term (current) drug therapy
CPT/HCPCS: 76870; 81003; 87491; 87591; 93975; 99284

== ENCOUNTER → 2022-04-22 | Outpatient (CLI) | payer MEDICARE, OTHER ==
--- NOTE | 2022-04-22 15:05 | US ---
EXAMINATION TYPE: US kidneys/renal and bladder DATE OF EXAM: 04/22/2022 COMPARISON: Correlation CT 04/06/2021 CLINICAL HISTORY: 61-year-old male N18.31 Stage 3a chronic kidney disease. TECHNIQUE: Multiple sonographic images of the kidneys and bladder are obtained. FINDINGS: EXAM MEASUREMENTS: Right Kidney: 10.2 x 4.3 x 4.0 cm Left Kidney: 9.9 x 4.9 x 5.2 cm Right Kidney: No hydronephrosis or masses seen Left Kidney: No hydronephrosis or masses seen Bladder: Appears anechoic Bilateral Jets seen: Yes IMPRESSION: No hydronephrosis on either side.
== END ==
LOC: RADUSWWP 11:13
PROVIDERS: ATTEND Internal Medicine
DX: N18.31 Chronic kidney disease, stage 3a (principal)
CPT/HCPCS: 76770

== ENCOUNTER → 2022-10-01 | Outpatient (CLI) | payer MEDICARE ==
[2022-10-01 23:37] LABS: Basophils # (A) 0.03 X 10*3/uL (0.00-0.10); Basophils % (A) 0.6 %; Eosinophils # (A) 0.06 X 10*3/uL (0.04-0.35); Eosinophils % (A) 1.2 %; HCT 45.2 % (39.6-50.0); Immature Grans, Automated 0.2 %; Lymphocytes # (A) 1.49 X 10*3/uL (0.90-5.00); Lymphocytes % (A) 29.4 %; MCH 31.5 pg (27.0-32.0); MCV 101.8 fL (80.0-97.0); Mean Platelet Volume 11.9 fL (9.5-12.2); Monocytes # (A) 0.35 X 10*3/uL (0.20-1.00); Monocytes % (A) 6.9 %; NRBC Per 100 WBC 0 /100 WBCS (0.0-0.0); Neutrophils # (A) 3.13 X 10*3/uL (1.80-7.70); Neutrophils % (A) 61.7 %; Platelet Count 238 X 10*3/uL (140-440); RBC 4.44 X 10*6/uL (4.40-5.60); RDW 12.6 % (11.5-14.5); WBC 5.07 X 10*3/uL (4.50-10.00)
[2022-10-01 23:44] LABS: % Iron Saturation 20.21 (15.00-50.00); African American GFR (CKD) 60.8 (60.0-200.0); Albumin/Globulin Ratio 1.69 (1.60-3.17); Anion Gap 9.8 mmol/L (10.00-18.00); BUN/Creat Ratio 11.47 Ratio (12.00-20.00); Blood Urea Nitrogen 16.4 mg/dL (9.0-27.0); Calcium 9.7 mg/dL (8.7-10.3); Carbon Dioxide 26.8 mmol/L (20.0-27.5); Globulin 2.4 g/dL (1.6-3.3); Non-African American GFR(CKD) 52.5 (60.0-200.0); Phosphorus 3.4 mg/dL (2.4-5.1); Potassium 4.8 mmol/L (3.5-5.5); Total Bilirubin 0.4 mg/dL (0.30-1.20); Total Protein 6.4 g/dL (6.2-8.2); Uric Acid 7.5 mg/dL (3.7-8.7)
[2022-10-01 23:48] LABS: Hepatitis A Antibody IgM Nonreactive (Nonreactive); Hepatitis B Core IgM Nonreactive (Nonreactive); Hepatitis B Surface Antigen Nonreactive (Nonreactive); Hepatitis C IgG Antibody Nonreactive (Nonreactive)
[2022-10-02 06:05] LABS: Anti-DNA, DS unit <1.0 IU/mL; DNA Double-Stranded NEGATIVE (NEGATIVE)
[2022-10-02 08:35] LABS: Appearance,Urine Clear (Clear); Bilirubin,Urine Negative (Negative); Blood,Urine Negative (Negative); Color,Urine Yellow; Glucose,Urine (UA) Negative (Negative); Ketones,Urine Negative (Negative); Leukocyte Esterase,Urine Negative (Negative); Nitrite,Urine Negative (Negative); PH, Urine 5.5 (5.0-8.0); Protein,Urine Negative (Negative); Specific Gravity,Urine 1.019 (1.001-1.035); Urobilinogen,Urine <2.0 mg/dL (<2.0)
[2022-10-02 13:09] LABS: Free Kappa Lt Chain Qnt, Serum 3.99 mg/dL (0.33-1.94); Free Lambda Lt Chain Qnt, Seru 2.99 mg/dL (0.57-2.63)
[2022-10-02 14:34] LABS: C-ANCA <1:20 Titer (<1:20)
[2022-10-02 15:21] LABS: HIV 2 AB Non-Reactive (Non-Reactive); HIV AB P24 Non-Reactive (Non-Reactive); HIV P24 AG Non-Reactive (Non-Reactive)
== END | disposition home or self-care (01) ==
LOC: LABWHC1 15:38
PROVIDERS: ATTEND Nurse Practitioner Acute Care
DX: E55.9 Vitamin D deficiency, unspecified (principal); N39.0 Urinary tract infection, site not specified; N25.81 Secondary hyperparathyroidism of renal origin; M10.9 Gout, unspecified; D63.1 Anemia in chronic kidney disease; N18.31 Chronic kidney disease, stage 3a
CPT/HCPCS: 36415; 80053; 80074; 81003; 82306; 82728; 83036; 83516; 83540; 83550; 83735; 83883; 83970; 84100; 84550; 85025; 86038; 86160; 86162; 86225; 86255; 86334; 87390

== ENCOUNTER → 2023-01-05 | Outpatient (CLI) | payer MEDICARE ==
[2023-01-05 16:43] LABS: % Iron Saturation 25.78 (15.00-50.00); ALT 19 U/L (10-49); AST 24 U/L (14-35); Albumin/Globulin Ratio 1.48 Ratio (1.60-3.17); Alkaline Phosphatase 68 U/L (41-126); BUN/Creat Ratio 13.71 Ratio (12.00-20.00); Blood Urea Nitrogen 19.2 mg/dL (9.0-27.0); Calcium 9.5 mg/dL (8.7-10.3); Carbon Dioxide 23.5 mmol/L (21.6-31.8); Chloride 110 mmol/L (96-109); Globulin 2.7 d/dL (1.6-3.3); Glucose 95 mg/dL (70-110); Iron 83 UG/DL (65-175); Magnesium 1.9 mg/dL (1.5-2.4); Phosphorus 2.9 mg/dL (2.4-5.1); Potassium 3.8 mmol/L (3.5-5.5); Sodium 143 mmol/L (135-145); Total Bilirubin 0.4 mg/dL (0.3-1.2); Total Iron Binding Capacity 322 UG/DL (228-460); Total Protein 6.7 d/dL (6.2-8.2)
[2023-01-05 18:19] LABS: HCT 38.9 % (39.6-50.0); HGB 12.3 d/dL (12.0-15.0); MCH 31.2 pg (27.0-32.0); MCHC 31.6 d/dL (32.0-37.0); MCV 98.7 FL (80.0-97.0); Mean Platelet Volume 12.3 FL (9.5-12.2); NRBC Per 100 WBC 0 X 10*3/uL (0.00-0.01); Platelet Count 169 X 10*3/uL (140-440); RBC 3.94 X 10*6/uL (4.40-5.60); RDW 12.4 % (11.5-14.5); WBC 4.13 X 10*3/uL (4.50-10.00)
[2023-01-05 19:55] LABS: Appearance,Urine Clear (Clear); Bilirubin,Urine Negative (Negative); Blood,Urine Negative (Negative); Color,Urine Yellow (Yellow); Ketones,Urine Negative (Negative); Nitrite,Urine Negative (Negative); PH, Urine 5.5; Specific Gravity,Urine 1.022 (1.001-1.030); Urobilinogen,Urine 0.2 E.U./DL
== END | disposition home or self-care (01) ==
LOC: LABWHC1 10:14
PROVIDERS: ATTEND Nurse Practitioner Acute Care
DX: E55.9 Vitamin D deficiency, unspecified (principal); N18.31 Chronic kidney disease, stage 3a; N39.0 Urinary tract infection, site not specified; N25.81 Secondary hyperparathyroidism of renal origin; D63.1 Anemia in chronic kidney disease
CPT/HCPCS: 36415; 80053; 81003; 82306; 82728; 83540; 83550; 83735; 83970; 84100; 85027

== ENCOUNTER → 2023-02-19 | Outpatient (CLI) | payer MEDICARE ==
[2023-02-20 02:24] LABS: HCT 41.5 % (39.6-50.0); HGB 12.9 d/dL (13.0-17.0); MCH 30.9 pg (27.0-32.0); MCHC 31.1 d/dL (32.0-37.0); MCV 99.3 FL (80.0-97.0); Mean Platelet Volume 12.3 FL (9.5-12.2); NRBC Per 100 WBC 0 X 10*3/uL (0.00-0.01); Platelet Count 166 X 10*3/uL (140-440); RBC 4.18 X 10*6/uL (4.40-5.60); RDW 12.4 % (11.5-14.5); WBC 4.76 X 10*3/uL (4.50-10.00)
[2023-02-20 02:34] LABS: Blood Urea Nitrogen 22.4 mg/dL (9.0-27.0); Carbon Dioxide 25.2 mmol/L (21.6-31.8); Chloride 105 mmol/L (96-109); Glucose 91 mg/dL (70-110); Potassium 3.9 mmol/L (3.5-5.5); Sodium 142 mmol/L (135-145)
== END | disposition home or self-care (01) ==
LOC: LABPAT 15:56
PROVIDERS: ATTEND Urology
DX: Z01.812 Encounter for preprocedural laboratory examination (principal); N43.3 Hydrocele, unspecified
CPT/HCPCS: 80048; 85027

== ENCOUNTER 2023-02-24 07:34 | Day surgery (SDC) | payer MEDICARE, OTHER ==
[2023-02-17 12:10] VITALS: BMI 23.0
--- NOTE | 2023-02-23 09:02 | P.HPIHPCON ---
History of Present Illness H&P Date: 02/23/23 Chief Complaint: Left hydronephrosis This is a 62-year-old male with history of a left hydrocele. He is symptomatic from his hydrocele. Option of left-sided hydrocelectomy was discussed with him. Aware of the risk which include but not limited to bleeding, infection, injury to the testicle. Risk of recurrence was also discussed. He understood all the risk and agreed to proceed Consent for Procedure: I have explained the operation/procedure to the patient, including the risks, benefits, side effects, alternative therapies (including not receiving the proposed treatment or service), the likelihood of the patient achieving his/her goals, and potential recuperation problems for the procedure/sedation/analgesia, as well as any blood products, if indicated. I also explained to the patient the risks, benefits and side effects of the alternatives, as well as the risks related to not receiving the proposed procedure, care, treatment, or services. 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" LT HYDROCELE History of Any Multi-Drug Resistant Organisms: None Reported Past Surgical History: Hernia Repair, Orthopedic Surgery Additional Past Surgical History / Comment(s): right arm surgery; L arm surgery and then removal of pins; colonoscopy, vascular surgery bilateral legs, Past Anesthesia/Blood Transfusion Reactions: No Reported Reaction Smoking Status: Never smoker - Past Family History Father Additional Family Medical History / Comment(s): pt did'nt know his father much- he was an alcoholic Mother Family Medical History: Cancer, Diabetes Mellitus, Hypertension Additional Family Medical History / Comment(s): breast cancer Sister(s) Family Medical History: Cancer Additional Family Medical History / Comment(s): heart murmur Daughter(s) Additional Family Medical History / Comment(s): heart murmur and has hole in heart Medications and Allergies Home Medications Medication Instructions Recorded Confirmed Type HYDROcodone/APAP 7.5-325MG [[place] 1 tab PO BID PRN 04/06/21 02/17/23 History 7.5-325] Aspirin EC [Ecotrin Low Dose] 81 mg PO DAILY 01/29/22 02/17/23 History Cholecalciferol [Vitamin D3 (25 25 mcg PO DAILY 02/17/23 02/17/23 History Mcg = 1000 Iu)] Sildenafil Citrate [Viagra] 100 mg PO DIRECTED PRN 02/17/23 02/17/23 History amLODIPine [Norvasc] 10 mg PO DAILY 02/17/23 02/17/23 History Allergies Allergy/AdvReac Type Severity Reaction Status Date / Time No Known Allergies Allergy Verified 02/17/23 11:59 Surgical - Exam - General no distress, no pain - Eyes normal ocular movement, no pale - ENT normal nares, normal mucosa - Respiratory normal expansion, normal respiratory effort - Genitourinary left: scrotal mass/hydrocele (hydrocele ) Assessment and Plan Assessment: OR for left hydrocelectomy
[2023-02-24] MEDS ORDERED: LACTATED RINGERS 1,000 ML IV SCH (08:32)
[2023-02-24] MEDS ORDERED: ONDANSETRON 4 MG/2 ML VIAL IVP ONE (08:32)
[2023-02-24] MEDS ORDERED: DEXAMETHASONE SOD PHOSPHATE 4 MG/ML 1 ML VIAL IV ONE (08:32)
[2023-02-24] MEDS ORDERED: HYDROmorphone 0.5 MG/0.5 ML SYRINGE IVP PRN (08:32)
[2023-02-24] MEDS ORDERED: PROPOFOL 10 MG/ML 20 ML VIAL IV ONE (09:20)
[2023-02-24] MEDS ORDERED: HYDROmorphone (PF) 1 MG/ML ONE (09:20)
[2023-02-24] MEDS ORDERED: MIDAZOLAM 2 MG/2 ML VIAL ONE (09:20)
[2023-02-24] MEDS ORDERED: LIDOCAINE 2% INJ 20 MG/ML (2 ML VIAL) ONE (09:20)
[2023-02-24] MEDS ORDERED: fentaNYL (PF) 50 MCG/ML 2 ML AMP ONE (09:20)
[2023-02-24] MEDS ORDERED: SUCCINYLCHOLINE CHLORIDE 200 MG/10 ML VIAL IV ONE (09:20)
[2023-02-24] MEDS ORDERED: KETOROLAC 15 MG/ML 1 ML VIAL ONE (09:20)
[2023-02-24] MEDS ORDERED: BUPIVACAINE (PF) 0.5% 30 ML VIAL SQ ONE ×4 (09:21→09:41)
[2023-02-24 10:23] VITALS: TEMP 97.2
--- NOTE | 2023-02-24 10:41 | P.OP ---
Date of Procedure: 02/24/23 Preoperative Diagnosis: Hydrocele Postoperative Diagnosis: Same Procedure(s) Performed: Left hydrocelectomy Implants: none Anesthesia: SHAUNA Surgeon: Apollo Carrillo Estimated Blood Loss (ml): 10 Pathology: other (Left hydrocele sac) Condition: stable Disposition: PACU Indications for Procedure: This is a 62-year-old male with history of a left hydrocele. He is symptomatic from his hydrocele. Option of left-sided hydrocelectomy was discussed with him. Aware of the risk which include but not limited to bleeding, infection, injury to the testicle. Risk of recurrence was also discussed. He understood all the risk and agreed to proceed Description of Procedure: Patient brought to the operating room, general anesthesia was induced. He was prepped and draped in sterile fashion and placed in a supine position. Next lo phuong anesthetic was infiltrated along the left hemiscrotum. Next an incision was made along the left hemiscrotum, dartos fascia was dissected down using cautery. Next all tissue around the hydrocele sac was dissected out. Next a small incision was made in the hydrocele sac and fluid was drained. Next the hydrocele sac was excised and sent to pathology. The edges of the hydrocele sac were cauterized. There was no abnormality within the testicle. The testicle was viable at the end of the case. The testicle was returned back to the scrotal cavity in normal anatomical lay. dartos fascia was closed using 4-0 Vicryl in running fashion. Skin was closed using 4-0 chromic in running fashion. Skin glue was applied to the incision. Patient tolerated procedure well taken to recovery in stable condition
[2023-02-24 11:13] VITALS: BP 136/77; PULSE 53; RESP 16
== END 2023-02-24 13:10 | disposition home or self-care (01) ==
LOC: OR 07:34
PROVIDERS: ATTEND Urology
DX: N43.3 Hydrocele, unspecified (principal); K21.9 Gastro-esophageal reflux disease without esophagitis; I10 Essential (primary) hypertension; M19.90 Unspecified osteoarthritis, unspecified site; G89.29 Other chronic pain; Z86.73 Personal history of transient ischemic attack (TIA), and cerebral infarction without residual deficits; Z98.890 Other specified postprocedural states; Z82.49 Family history of ischemic heart disease and other diseases of the circulatory system; Z86.59 Personal history of other mental and behavioral disorders; Z83.3 Family history of diabetes mellitus; Z79.899 Other long term (current) drug therapy
CPT/HCPCS: 55040; J1100; J0690; J2405; J0665; 88302